=== PATIENT | male | born 1955 | race Caucasian/White ===

== ENCOUNTER 2017-09-05 14:12 | Emergency (ER) | payer MEDICAID ==
[2017-09-05] MEDS ORDERED: Sodium Chloride 0.9% 1,000 ML IV SCH (14:30)
--- NOTE | 2017-09-05 14:50 | CT ---
Head wo Cont HISTORY: Stroke code COMPARISON: None TECHNIQUE: Noncontrast enhanced axial cuts were obtained of the brain. FINDINGS:There is no cerebral or subdural hemorrhage. There is no mass effect or edema. The ventricle s and CSF spaces are appropriate for age. There is fusiform aneurysmal dilatation of the basilar williams ry. The aneurysm measures 2.6 cm in length and 1.5 cm diameter. IMPRESSION: 1. Fusiform aneurysm of the basilar artery. 2. No acute intracranial changes. MRI is a more sensitive evaluation for early ischemic change. ER physician notified of findings.
--- NOTE | 2017-09-05 15:04 | EDM.PDOC ---
ED HPI GENERAL MEDICAL PROBLEM - General Chief Complaint: Neuro Symptoms/Deficits Stated Complaint: MEDICAL VIA [facility]TH Time Seen by Provider: 09/05/17 14:57 Source of Information: Reports: Patient, Family History Limitations: Reports: No Limitations - History of Present Illness INITIAL COMMENTS - FREE TEXT/NARRATIVE: pt arrived with facial deviation. He has slurred speech but he is able to say what he wishes. He has bilateral leg weakness. He has normal strength in his arms. Onset: Today, Other ( 1 hr prior to arrival. ) Duration: Hour(s): Location: Reports: Head Associated Symptoms: Reports: No Other Symptoms - Related Data Allergies Allergy/AdvReac Type Severity Reaction Status Date / Time bee pollen Allergy Anxiety Verified 09/05/17 14:26 codeine Allergy Chest Pain Verified 09/05/17 14:26 Penicillins Allergy Hives Verified 09/05/17 14:26 Home Meds: Home Meds Hydrocodone/Acetaminophen [Hydrocodon-Acetaminophen 5-325] 1 each PO Q6H PRN [History] Aspirin 81 mg PO DAILY 07/26/16 [History] Clopidogrel [Plavix] 75 mg PO DAILY 07/26/16 [History] Levothyroxine 125 mcg PO DAILY 07/26/16 [History] Lisinopril [Prinivil] 10 mg PO DAILY 07/26/16 [History] Metoprolol Tartrate [Lopressor] 25 mg PO BID 07/26/16 [History] Morphine [MS Contin] 15 mg PO Q12H 07/26/16 [History] atorvaSTATin [Lipitor] 40 mg PO BEDTIME 07/26/16 [History] Bumetanide [Bumetanide] 1 tab PO DAILY 09/05/17 [History] Elbasvir/Grazoprevir [Zepatier 50-100 mg Tablet] 1 tab PO DAILY 09/05/17 [ History] Nicotine [Nicotine Patch] 1 patch TD DAILY 09/05/17 [History] Past Medical History HEENT History: Reports: Impaired Vision, Otitis Media Other HEENT History: ruptureds eardrum Cardiovascular History: Reports: Bypass, CAD, High Cholesterol, Hypertension, [place] , SOB on Exertion Respiratory History: Reports: Other (See Below) Other Respiratory History: ruptured left lung Gastrointestinal History: Reports: Hepatitis Musculoskeletal History: Reports: Back Pain, Chronic, Fracture Other Musculoskeletal History: fingers and rib Neurological History: Reports: Concussion, Head Trauma Psychiatric History: Reports: PTSD Endocrine/Metabolic History: Reports: Hypothyroidism, Obesity/BMI 30+ Hematologic History: Reports: Anticoagulation Therapy Dermatologic History: Reports: None - Infectious Disease History Infectious Disease History: Reports: Chicken Pox, Hepatitis B, Measles, Mononucleosis, Mumps, Scarlet Fever, Other (See Below) - Past Surgical History HEENT Surgical History: Reports: Oral Surgery Cardiovascular Surgical History: Reports: Coronary Artery Bypass GI Surgical History: Reports: Colonoscopy Musculoskeletal Surgical History: Reports: Arthroscopic Procedure, Shoulder Surgery Social & Family History - Family History Family Medical History: Noncontributory - Tobacco Use Smoking Status *Q: Heavy Tobacco Smoker Years of Tobacco use: 20 Packs/Tins Daily: 1 Used Tobacco, but Quit: No Second Hand Smoke Exposure: Yes - Caffeine Use Caffeine Use: Reports: Coffee, Soda - Recreational Drug Use Recreational Drug Use: No ED ROS GENERAL - Review of Systems Review Of Systems: See Below Constitutional: Reports: No Symptoms HEENT: Reports: Other ( facial deviation) Respiratory: Reports: No Symptoms Cardiovascular: Reports: No Symptoms Endocrine: Reports: No Symptoms GI/Abdominal: Reports: No Symptoms : Reports: No Symptoms Musculoskeletal: Reports: No Symptoms Skin: Reports: No Symptoms ED EXAM, NEURO - Physical Exam Exam: See Below Text/Narrative:: pt arrived with facial deviation and slurred speech. Exam Limited By: No Limitations General Appearance: Alert, Other (pupils equal and reactive. ) Ears: Normal TMs Nose: Normal Inspection Throat/Mouth: Normal Inspection Head Exam: Atraumatic Neck: Normal Inspection Respiratory/Chest: No Respiratory Distress Cardiovascular: Regular Rate, Rhythm GI/Abdominal: Soft, Non-Tender (Male) Exam: Deferred Rectal (Males) Exam: Deferred Neurological: Alert, Other ( facial deviation and slurred speech. ) Back Exam: Normal Inspection Extremities: Normal Inspection Psychiatric: Normal Affect Course - Vital Signs Last Recorded V/S: Last Vital Signs Temp 36.3 C 09/05/17 15:59 Pulse 61 09/05/17 15:59 Resp 16 09/05/17 15:59 BP 145/73 H 09/05/17 15:59 Pulse Ox 95 09/05/17 15:59 - Orders/Labs/Meds Labs: Laboratory Tests 09/05/17 09/05/17 09/05/17 Range/Units 14:32 14:32 14:32 WBC 11.1 H (4.5-11.0) K/uL RBC 5.36 (4.30-5.90) M/uL Hgb 15.8 H (12.0-15.0) g/dL Hct 46.1 (40.0-54.0) % MCV 86 (80-98) fL MCH 30 (27-31) pg MCHC 34 (32-36) % Plt Count 244 (150-400) K/uL Neut % (Auto) 79 H (36-66) % Lymph % (Auto) 13 L (24-44) % Nolan % (Auto) 7 H (2-6) % Eos % (Auto) 1 L (2-4) % Baso % (Auto) 0 (0-1) % APTT 27.3 (27.0-36.0) sec Sodium 139 L (140-148) mmol/L Potassium 4.0 (3.6-5.2) mmol/L Chloride 103 (100-108) mmol/L Carbon Dioxide 27 (21-32) mmol/L Anion Gap 13.0 (5.0-14.0) mmol/L BUN 20 H (7-18) mg/dL Creatinine 1.1 (0.8-1.3) mg/dL Est Cr Clr Drug Dosing 73.21 mL/min Estimated GFR (MDRD) > 60 (>60) Glucose 138 H (74-106) mg/dL Calcium 8.7 (8.5-10.1) mg/dL Total Bilirubin 0.3 (0.2-1.0) mg/dL AST 17 (15-37) U/L ALT 17 (12-78) U/L Alkaline Phosphatase 87 (46-116) U/L Total Protein 6.7 (6.4-8.2) g/dL Albumin 3.8 (3.4-5.0) g/dL Globulin 2.9 (2.3-3.5) g/dL Albumin/Globulin Ratio 1.3 (1.2-2.2) TSH, Ultra Sensitive (0.358-3.740) uIU/mL 09/05/17 Range/Units 14:32 WBC (4.5-11.0) K/uL RBC (4.30-5.90) M/uL Hgb (12.0-15.0) g/dL Hct (40.0-54.0) % MCV (80-98) fL MCH (27-31) pg MCHC (32-36) % Plt Count (150-400) K/uL Neut % (Auto) (36-66) % Lymph % (Auto) (24-44) % Nolan % (Auto) (2-6) % Eos % (Auto) (2-4) % Baso % (Auto) (0-1) % APTT (27.0-36.0) sec Sodium (140-148) mmol/L Potassium (3.6-5.2) mmol/L Chloride (100-108) mmol/L Carbon Dioxide (21-32) mmol/L Anion Gap (5.0-14.0) mmol/L BUN (7-18) mg/dL Creatinine (0.8-1.3) mg/dL Est Cr Clr Drug Dosing mL/min Estimated GFR (MDRD) (>60) Glucose (74-106) mg/dL Calcium (8.5-10.1) mg/dL Total Bilirubin (0.2-1.0) mg/dL AST (15-37) U/L ALT (12-78) U/L Alkaline Phosphatase (46-116) U/L Total Protein (6.4-8.2) g/dL Albumin (3.4-5.0) g/dL Globulin (2.3-3.5) g/dL Albumin/Globulin Ratio (1.2-2.2) TSH, Ultra Sensitive 3.786 H (0.358-3.740) uIU/mL Meds: Medications Discontinued Medications Generic Name Dose Route Start Last Admin Trade Name Freq PRN Reason Stop Dose Admin Gadoteridol 20 ml 09/05/17 15:16 09/05/17 15:48 Prohance IV 09/06/17 15:17 20 ml . DIRECTED PRN Administration RADIOLOGY EXAM Sodium Chloride 1,000 mls @ 125 mls/hr 09/05/17 14:30 09/05/17 14:33 Normal Saline IV 125 mls/hr ASDIRECTED SARAH Administration Morphine Sulfate 2 mg 09/05/17 15:51 09/05/17 15:54 Morphine IVPUSH 09/05/17 15:52 2 mg ONETIME ONE Administration Morphine Sulfate Confirm 02/20/18 15:52 Morphine Administered 09/05/17 15:53 Dose 2 mg .ROUTE .STK-MED ONE - Re-Assessments/Exams Free Text/Narrative Re-Assessment/Exam: 09/05/17 15:25 cat scan showed a large basilar artery aneuyism. There is no hemmorage. Departure - Departure Time of Disposition: 14:57 Disposition: DC/Tfer to Acute Hospital 02 Condition: Fair Clinical Impression: Stroke due to embolism - Discharge Information Referrals: Renan Oseguera MD [Primary Care Provider] - Forms: ED Department Discharge Care Plan Goals: to [facility] Critical Care Note - Critical Care Note Total Time (mins): 30 Comments: PT ARRIVED WITH FACIAL DEVIATION AND SLURRED SPEECH. hE HAD AN IMMEDIATE CAT SCAN WHICH SHOWED A LARGE BASILAR ARTERY ANEUYISM. nEUROSURGERY WAS CALLED AND THEY WANTED AN MRI AND A MRA OF THE BRAIN ND A MRA OF THE NECK. tHIS WAS OBTAINED. tHE PT DID REMAIN STABLE. hE WAS AIRLIFTED TO [facility]. tHRE WAS NO SIGN OF LEAKAGE FROM THE ANEUYISM BUT THERE WAS PRESSURE ON THE BUBBA PROBABLY CAUSING SOME OF THE SYMPTOMS
[2017-09-05] MEDS ORDERED: Gadoteridol 279.3 MG/ML 20 ML SDV IV PRN (15:16)
[2017-09-05] MEDS ORDERED: Morphine 2 MG/ML Syringe IVPUSH ONE (15:51)
[2017-09-05] MEDS ORDERED: Morphine 2 MG/ML Syringe ONE (15:52)
[2017-09-05 15:59] VITALS: BP 145/73
== END 2017-09-05 16:02 ==
LOC: JP.ED 14:12
DX: I63.12 Cerebral infarction due to embolism of basilar artery (principal); I10 Essential (primary) hypertension; E78.00 Pure hypercholesterolemia, unspecified; I25.10 Atherosclerotic heart disease of native coronary artery without angina pectoris; I25.2 Old myocardial infarction; E03.9 Hypothyroidism, unspecified; Z88.0 Allergy status to penicillin; Z88.5 Allergy status to narcotic agent; Z91.09 Other allergy status, other than to drugs and biological substances; Z79.82 Long term (current) use of aspirin; Z79.02 Long term (current) use of antithrombotics/antiplatelets; Z79.899 Other long term (current) drug therapy; Z72.0 Tobacco use; Z95.1 Presence of aortocoronary bypass graft
CPT/HCPCS: 36415; 70450; 70544; 70549; 70551; 80053; 84443; 85025; 85730; 93005; 99285; A9576; J2270; J7040

== ENCOUNTER 2017-09-24 15:42 | Emergency (ER) | payer MEDICAID ==
[2017-09-24 15:59] VITALS: BP 147/77
[2017-09-24] MEDS ORDERED: Silver Nitrate Applicator Each ONE (16:28)
--- NOTE | 2017-09-24 16:34 | EDM.PDOC ---
ED HPI GENERAL MEDICAL PROBLEM - General Chief Complaint: General Stated Complaint: LACERATION WON'T STOP BLEEDING Time Seen by Provider: 09/24/17 16:20 Source of Information: Reports: Patient, Old Records, RN History Limitations: Reports: No Limitations - History of Present Illness INITIAL COMMENTS - FREE TEXT/NARRATIVE: 61 yo male with a recent CVA is on warfarin. He is next due for an INR on Monday. Since sometime in the night last night he has had slow oozing of a tiny upper left sided lip wound. 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) chronic Pain Score (Numeric/FACES): 7 - Related Data Allergies Allergy/AdvReac Type Severity Reaction Status Date / Time bee pollen Allergy Anxiety Verified 09/24/17 16:01 codeine Allergy Chest Pain Verified 09/24/17 16:01 Penicillins Allergy Hives Verified 09/24/17 16:01 Home Meds: Home Meds Hydrocodone/Acetaminophen [Hydrocodon-Acetaminophen 5-325] 1 each PO QID [History] Aspirin 81 mg PO DAILY 07/26/16 [History] Clopidogrel [Plavix] 75 mg PO DAILY 07/26/16 [History] Levothyroxine 125 mcg PO DAILY 07/26/16 [History] Lisinopril [Prinivil] 10 mg PO DAILY 07/26/16 [History] Metoprolol Tartrate [Lopressor] 25 mg PO BID 07/26/16 [History] Morphine [MS Contin] 15 mg PO Q12H 07/26/16 [History] atorvaSTATin [Lipitor] 40 mg PO BEDTIME 07/26/16 [History] Bumetanide [Bumetanide] 1 tab PO DAILY 09/05/17 [History] Warfarin Sodium [Warfarin Sodium] 7.5 mg PO DAILY 09/24/17 [History] Past Medical History HEENT History: Reports: Impaired Vision, Otitis Media Other HEENT History: ruptureds eardrum Cardiovascular History: Reports: Bypass, CAD, High Cholesterol, Hypertension, [place] , SOB on Exertion Respiratory History: Reports: Other (See Below) Other Respiratory History: ruptured left lung Gastrointestinal History: Reports: Hepatitis Musculoskeletal History: Reports: Back Pain, Chronic, Fracture Other Musculoskeletal History: fingers and rib Neurological History: Reports: Concussion, CVA, Head Trauma Psychiatric History: Reports: Anxiety Endocrine/Metabolic History: Reports: Hypothyroidism, Obesity/BMI 30+ Hematologic History: Reports: Anticoagulation Therapy Dermatologic History: Reports: None - Infectious Disease History Infectious Disease History: Reports: Chicken Pox, Hepatitis B, Measles, Mononucleosis, Mumps, Scarlet Fever, Other (See Below) - Past Surgical History HEENT Surgical History: Reports: Oral Surgery Cardiovascular Surgical History: Reports: Coronary Artery Bypass GI Surgical History: Reports: Colonoscopy Musculoskeletal Surgical History: Reports: Arthroscopic Procedure, Shoulder Surgery Social & Family History - Family History Family Medical History: Noncontributory - Tobacco Use Smoking Status *Q: Current Some Day Smoker Years of Tobacco use: 46 Packs/Tins Daily: 0.3 Used Tobacco, but Quit: No Second Hand Smoke Exposure: Yes - Caffeine Use Caffeine Use: Reports: Coffee - Recreational Drug Use Recreational Drug Use: No ED ROS GENERAL - Review of Systems Review Of Systems: See Below Constitutional: Reports: No Symptoms HEENT: Reports: No Symptoms Respiratory: Reports: No Symptoms Cardiovascular: Reports: No Symptoms Skin: Reports: Wound (tiny oozing wound to the left lateral upper lip). Denies : Rash, Erythema Neurological: Reports: No Symptoms ED EXAM, GENERAL - Physical Exam Exam: See Below Exam Limited By: No Limitations General Appearance: Alert, WD/WN, No Apparent Distress Eye Exam: Bilateral Eye: Normal Inspection Ears: Normal External Exam, Normal Canal, Hearing Grossly Normal Ear Exam: Bilateral Ear: Auricle Normal, Canal Normal Nose: Normal Inspection, Normal Mucosa, No Blood Throat/Mouth: Normal Inspection, Normal Oropharynx, Normal Voice, No Airway Compromise, Other (upper left side of lip has very slow steady oozing.) Respiratory/Chest: No Respiratory Distress, Lungs Clear, Normal Breath Sounds Cardiovascular: Regular Rate, Rhythm, No Edema Skin Exam: Warm, Dry, Normal Color, No Rash, Wound/Incision (L side of upper lip , punctate size bleeding site. ) Course - Vital Signs Text/Narrative:: Cautery with silver nitrate. Last Recorded V/S: Last Vital Signs Temp 36.9 C 09/24/17 16:10 Pulse 79 09/24/17 16:10 Resp 16 09/24/17 16:10 BP 147/77 H 09/24/17 16:10 Pulse Ox 96 09/24/17 16:10 - Orders/Labs/Meds Labs: Laboratory Tests 09/24/17 Range/Units 16:33 PT 35.3 H (9.5-12.0) sec INR 3.15 H D (0.80-1.20) Meds: Medications Discontinued Medications Generic Name Dose Route Start Last Admin Trade Name Frekristi PRN Reason Stop Dose Admin Silver Nitrate Confirm 09/24/17 16:28 09/24/17 16:52 Silver Nitrate Administered 09/24/17 16:29 Not Given Dose 1 each .ROUTE .STK-MED ONE Silver Nitrate 1 each 09/24/17 16:53 09/24/17 16:57 Silver Nitrate TOP 09/24/17 16:54 1 each ONETIME ONE Administration Departure - Departure Time of Disposition: 17:06 Disposition: Home, Self-Care 01 Condition: Good Clinical Impression: Protime monitoring Open wound of lip Qualifiers: Encounter type: initial encounter Open wound type: puncture wound Foreign body presence: without foreign body Qualified Code(s): S01.531A - Puncture wound without foreign body of lip, initial encounter - Discharge Information Referrals: Renan Oseguera MD [Primary Care Provider] - Forms: ED Department Discharge
[2017-09-24] MEDS ORDERED: Silver Nitrate Applicator Each TOP ONE (16:53)
== END 2017-09-24 17:19 | disposition home or self-care (01) ==
LOC: JP.ED 15:42
DX: S01.531A Puncture wound without foreign body of lip, initial encounter (principal); I25.10 Atherosclerotic heart disease of native coronary artery without angina pectoris; E78.00 Pure hypercholesterolemia, unspecified; I10 Essential (primary) hypertension; I25.2 Old myocardial infarction; F17.210 Nicotine dependence, cigarettes, uncomplicated; Z86.73 Personal history of transient ischemic attack (TIA), and cerebral infarction without residual deficits; Z91.030 Bee allergy status; Z88.5 Allergy status to narcotic agent; Z88.0 Allergy status to penicillin; Z79.82 Long term (current) use of aspirin; Z79.01 Long term (current) use of anticoagulants; X58.XXXA Exposure to other specified factors, initial encounter
CPT/HCPCS: 12011; 36415; 85610; 99283-25

== ENCOUNTER 2018-03-07 10:05 | Emergency (ER) | payer MEDICAID ==
[2018-03-07] MEDS ORDERED: Meclizine 25 MG Tab PO ONE (10:18)
--- NOTE | 2018-03-07 10:30 | EDM.PDOC ---
ED HPI GENERAL MEDICAL PROBLEM - General Chief Complaint: General Stated Complaint: NOT SEEING CORRECTLY Time Seen by Provider: 03/07/18 10:15 Source of Information: Reports: Patient, EMS, Old Records, RN History Limitations: Reports: No Limitations - History of Present Illness INITIAL COMMENTS - FREE TEXT/NARRATIVE: 62 yo male awoke this morning and sat up to let the cat out and immediately developed vertigo. He managed to let the cat out and get back to bed, but when he tried to get up again he developed vertigo again associated with nausea/ vomiting. He had something like this many yrs ago. He has a hx of a cerebral aneurysm and this concerned him so he called 911 today. He denies a CASILLAS. He has no neck stiffness. EMS administered Zofran so his nausea is better and now lying still he has no vertigo. Onset: Today Onset Date: 03/07/18 Onset Time: 08:00 Duration: Minutes:, Waxing/Waning Location: Reports: Head Quality: Reports: Other (no pain) Severity: Severe (at its worst, not now) Improves with: Reports: Immobilization Worsens with: Reports: Movement Context: Reports: Other (PHx of vertigo and a cerebral aneurysm) Associated Symptoms: Reports: No Other Symptoms. 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) (Zofran per EMS) Back Pain Score (Numeric/FACES): 6 - Related Data Allergies Allergy/AdvReac Type Severity Reaction Status Date / Time bee pollen Allergy Anxiety Verified 09/24/17 16:01 codeine Allergy Chest Pain Verified 09/24/17 16:01 Penicillins Allergy Hives Verified 09/24/17 16:01 Home Meds: Home Meds Hydrocodone/Acetaminophen [Hydrocodon-Acetaminophen 5-325] 1 each PO QID [History] Aspirin 81 mg PO DAILY 07/26/16 [History] Clopidogrel [Plavix] 75 mg PO DAILY 07/26/16 [History] Levothyroxine 125 mcg PO DAILY 07/26/16 [History] Lisinopril [Prinivil] 10 mg PO DAILY 07/26/16 [History] Metoprolol Tartrate [Lopressor] 25 mg PO BID 07/26/16 [History] Morphine [MS Contin] 15 mg PO Q12H 07/26/16 [History] atorvaSTATin [Lipitor] 40 mg PO BEDTIME 07/26/16 [History] Bumetanide 1 tab PO DAILY 09/05/17 [History] Warfarin Sodium 7.5 mg PO DAILY 09/24/17 [History] Past Medical History HEENT History: Reports: Impaired Vision, Otitis Media Other HEENT History: ruptureds eardrum Cardiovascular History: Reports: Bypass, CAD, High Cholesterol, Hypertension, [place] , SOB on Exertion Respiratory History: Reports: Other (See Below) Other Respiratory History: ruptured left lung Gastrointestinal History: Reports: Hepatitis Musculoskeletal History: Reports: Back Pain, Chronic, Fracture Other Musculoskeletal History: fingers and rib Neurological History: Reports: Concussion, CVA, Head Trauma, Other (See Below) Other Neuro History: anurism Psychiatric History: Reports: Anxiety Endocrine/Metabolic History: Reports: Hypothyroidism, Obesity/BMI 30+ Hematologic History: Reports: Anticoagulation Therapy Dermatologic History: Reports: None - Infectious Disease History Infectious Disease History: Reports: Chicken Pox, Hepatitis B, Measles, Mononucleosis, Mumps, Scarlet Fever, Other (See Below) - Past Surgical History Head Surgeries/Procedures: Reports: None HEENT Surgical History: Reports: Oral Surgery Cardiovascular Surgical History: Reports: Coronary Artery Bypass GI Surgical History: Reports: Colonoscopy Musculoskeletal Surgical History: Reports: Arthroscopic Procedure, Shoulder Surgery Social & Family History - Family History Family Medical History: Noncontributory - Tobacco Use Smoking Status *Q: Heavy Tobacco Smoker Years of Tobacco use: 20 Packs/Tins Daily: 1 - Caffeine Use Caffeine Use: Reports: Coffee, Soda - Recreational Drug Use Recreational Drug Use: No ED ROS GENERAL - Review of Systems Review Of Systems: See Below Constitutional: Reports: No Symptoms HEENT: Reports: No Symptoms Respiratory: Reports: No Symptoms Cardiovascular: Reports: No Symptoms Endocrine: Reports: No Symptoms GI/Abdominal: Reports: Nausea, Vomiting (not currently). Denies: Abdominal Pain , Black Stool, Bloody Stool, Constipation, Diarrhea, Distension : Reports: No Symptoms Musculoskeletal: Reports: No Symptoms Skin: Reports: No Symptoms Neurological: Reports: Other (vertigo before arrival.) ED EXAM, GENERAL - Physical Exam Exam: See Below Exam Limited By: No Limitations General Appearance: Alert, WD/WN, No Apparent Distress Eye Exam: Bilateral Eye: Normal Inspection Ears: Normal External Exam, Normal Canal, Hearing Grossly Normal, Normal TMs Ear Exam: Bilateral Ear: Auricle Normal, Canal Normal, TM normal Nose: Normal Inspection, Normal Mucosa, No Blood Throat/Mouth: Normal Inspection, Normal Lips, Normal Oropharynx, Normal Voice, No Airway Compromise Head: Atraumatic, Normocephalic Neck: Normal Inspection Respiratory/Chest: No Respiratory Distress, Lungs Clear, Normal Breath Sounds, No Accessory Muscle Use Cardiovascular: Regular Rate, Rhythm, No Edema GI/Abdominal: Normal Bowel Sounds, Soft, Non-Tender, No Distention Extremities: Normal Inspection, Normal Range of Motion, Non-Tender, No Pedal Edema Neurological: Alert, Oriented, CN II-XII Intact, Normal Cognition, No Motor/ Sensory Deficits Psychiatric: Normal Affect, Normal Mood Skin Exam: Warm, Dry, Intact, Normal Color, No Rash Lymphatic: No Adenopathy Course - Vital Signs Text/Narrative:: Improved, not resolved after Meclizine. Last Recorded V/S: Last Vital Signs Temp 36.8 C 03/07/18 10:12 Pulse 61 03/07/18 10:12 Resp 18 03/07/18 10:12 BP 146/80 H 03/07/18 10:12 Pulse Ox 96 03/07/18 10:12 - Orders/Labs/Meds Meds: Medications Discontinued Medications Generic Name Dose Route Start Last Admin Trade Name Freq PRN Reason Stop Dose Admin Meclizine HCl 25 mg 03/07/18 10:18 03/07/18 10:30 Antivert PO 03/07/18 10:19 25 mg ONETIME ONE Administration Departure - Departure Time of Disposition: 11:33 Disposition: Home, Self-Care 01 Condition: Fair Clinical Impression: BPV (benign positional vertigo) Qualifiers: Laterality: unspecified laterality Qualified Code(s): H81.10 - Benign paroxysmal vertigo, unspecified ear - Discharge Information *PRESCRIPTION DRUG MONITORING PROGRAM REVIEWED*: Not Applicable *COPY OF PRESCRIPTION DRUG MONITORING REPORT IN PATIENT MARIZOL: Not Applicable Instructions: Vertigo, [id number] Referrals: PCP,None [Primary Care Provider] - Forms: ED Department Discharge Additional Instructions: Take meclizine as directed. Recheck if worse or not improving with Dr. Oseguera for referral possibly to PT.
[2018-03-07 10:36] VITALS: BP 146/80
== END 2018-03-07 11:49 | disposition home or self-care (01) ==
LOC: JP.ED 10:05
DX: H81.10 Benign paroxysmal vertigo, unspecified ear (principal); F17.210 Nicotine dependence, cigarettes, uncomplicated; E78.00 Pure hypercholesterolemia, unspecified; I10 Essential (primary) hypertension; I25.2 Old myocardial infarction; Z79.82 Long term (current) use of aspirin; Z88.5 Allergy status to narcotic agent; Z88.0 Allergy status to penicillin; Z79.01 Long term (current) use of anticoagulants
CPT/HCPCS: 99284; A9270

== ENCOUNTER 2018-03-08 00:57 | Emergency (ER) | payer MEDICAID ==
[2018-03-08] MEDS ORDERED: Ondansetron 4 MG/2 ML SDV IVPUSH ONE (01:41)
[2018-03-08] MEDS ORDERED: LORazepam 2 MG/ML SDV IVPUSH ONE (01:41)
--- NOTE | 2018-03-08 01:44 | EDM.PDOC ---
ED HPI GENERAL MEDICAL PROBLEM - General Chief Complaint: Gastrointestinal Problem Stated Complaint: ILLNESS Time Seen by Provider: 03/08/18 01:43 Source of Information: Reports: Patient, Family History Limitations: Reports: No Limitations - History of Present Illness INITIAL COMMENTS - FREE TEXT/NARRATIVE: pt was seen earlier today in the er and he was given something for dizziness. He has a history of a large brain aneuysm. Onset: Today Duration: Hour(s):, Getting Worse, Other (Pt is vomiting continuously. ) Location: Reports: Head Associated Symptoms: Reports: No Other Symptoms, Other (pt is not having severe headaches. ) - Related Data Allergies Allergy/AdvReac Type Severity Reaction Status Date / Time bee pollen Allergy Anxiety Verified 03/08/18 01:15 codeine Allergy Chest Pain Verified 03/08/18 01:15 Penicillins Allergy Hives Verified 03/08/18 01:15 Home Meds: Home Meds Hydrocodone/Acetaminophen [Hydrocodon-Acetaminophen 5-325] 1 each PO QID [History] Aspirin 81 mg PO DAILY 07/26/16 [History] Clopidogrel [Plavix] 75 mg PO DAILY 07/26/16 [History] Levothyroxine 125 mcg PO DAILY 07/26/16 [History] Lisinopril [Prinivil] 10 mg PO DAILY 07/26/16 [History] Metoprolol Tartrate [Lopressor] 25 mg PO BID 07/26/16 [History] Morphine [MS Contin] 15 mg PO Q12H 07/26/16 [History] atorvaSTATin [Lipitor] 40 mg PO BEDTIME 07/26/16 [History] Bumetanide 1 tab PO DAILY 09/05/17 [History] Warfarin Sodium 7.5 mg PO DAILY 09/24/17 [History] Meclizine [Antivert] 25 mg PO Q6H PRN #30 tab 03/07/18 [Rx] Past Medical History HEENT History: Reports: Impaired Vision, Otitis Media Other HEENT History: ruptureds eardrum Cardiovascular History: Reports: Bypass, CAD, High Cholesterol, Hypertension, [place] , SOB on Exertion Respiratory History: Reports: Other (See Below) Other Respiratory History: ruptured left lung Gastrointestinal History: Reports: Hepatitis Musculoskeletal History: Reports: Back Pain, Chronic, Fracture Other Musculoskeletal History: fingers and rib Neurological History: Reports: Concussion, CVA, Head Trauma, Other (See Below) Other Neuro History: aneurysm Psychiatric History: Reports: Anxiety Endocrine/Metabolic History: Reports: Hypothyroidism, Obesity/BMI 30+ Hematologic History: Reports: Anticoagulation Therapy Dermatologic History: Reports: None - Infectious Disease History Infectious Disease History: Reports: Chicken Pox, Hepatitis B, Measles, Mononucleosis, Mumps, Scarlet Fever, Other (See Below) - Past Surgical History Head Surgeries/Procedures: Reports: None HEENT Surgical History: Reports: Oral Surgery Cardiovascular Surgical History: Reports: Coronary Artery Bypass GI Surgical History: Reports: Colonoscopy Musculoskeletal Surgical History: Reports: Arthroscopic Procedure, Shoulder Surgery Social & Family History - Family History Family Medical History: Noncontributory - Tobacco Use Smoking Status *Q: Current Every Day Smoker Years of Tobacco use: 20 Packs/Tins Daily: 1 - Caffeine Use Caffeine Use: Reports: Coffee, Soda - Recreational Drug Use Recreational Drug Use: No ED ROS GENERAL - Review of Systems Review Of Systems: See Below Constitutional: Reports: No Symptoms Respiratory: Reports: No Symptoms Cardiovascular: Reports: No Symptoms Endocrine: Reports: No Symptoms GI/Abdominal: Reports: Nausea, Vomiting, Other ( intractable vomiting. ) : Reports: No Symptoms Musculoskeletal: Reports: No Symptoms Skin: Reports: No Symptoms ED EXAM, GI/ABD - Physical Exam Exam: See Below Text/Narrative:: pt is still spinning when he moves. He has been vopmiting profusely. He has not had chest pain or severe headaches. Exam Limited By: No Limitations General Appearance: Alert, Anxious, Moderate Distress, Other (pupils are equal and reactive.) Ears: Normal TMs Nose: Normal Inspection Throat/Mouth: Normal Inspection Head: Atraumatic Neck: Normal Inspection Respiratory/Chest: No Respiratory Distress Cardiovascular: Regular Rate, Rhythm GI/Abdominal Exam: Soft, Non-Tender (Male) Exam: Deferred Rectal (Males) Exam: Deferred Back Exam: Normal Inspection Extremities: Normal Inspection Neurological: Alert, Oriented, Normal Cognition Psychiatric: Normal Affect Course - Vital Signs Last Recorded V/S: Last Vital Signs Temp 36.9 C 03/08/18 01:08 Pulse 75 03/08/18 01:08 Resp 18 03/08/18 01:08 BP 176/99 H 03/08/18 01:08 Pulse Ox 97 03/08/18 01:08 - Orders/Labs/Meds Orders: Active Orders 24 hr Category Date Time Status Head wo Cont [CT] Stat Exams 03/08/18 01:42 Taken Sodium Chloride 0.9% [Normal Saline] 1,000 ml Med 03/08/18 01:45 Active IV ASDIRECTED Sodium Chloride 0.9% [Normal Saline] 1,000 ml Med 03/08/18 02:30 Active IV ASDIRECTED Medication Orders Sodium Chloride (Normal Saline) 1,000 mls @ 999 mls/hr IV ASDIRECTED SARAH Last Admin: 03/08/18 02:35 Dose: 999 mls/hr Sodium Chloride (Normal Saline) 1,000 mls @ 999 mls/hr IV ASDIRECTED SARAH Last Admin: 03/08/18 03:30 Dose: 999 mls/hr Labs: Laboratory Tests 03/08/18 03/08/18 03/08/18 Range/Units 01:42 01:42 01:56 WBC 10.2 (4.5-11.0) K/uL RBC 5.46 (4.30-5.90) M/uL Hgb 15.9 H (12.0-15.0) g/dL Hct 45.6 (40.0-54.0) % MCV 84 (80-98) fL MCH 29 (27-31) pg MCHC 35 (32-36) % Plt Count 290 (150-400) K/uL Neut % (Auto) 78 H (36-66) % Lymph % (Auto) 14 L (24-44) % Duchesne % (Auto) 8 H (2-6) % Eos % (Auto) 0 L (2-4) % Baso % (Auto) 0 (0-1) % PT 21.2 H (9.5-12.0) sec INR 2.00 H D (0.80-1.20) Sodium 138 L (140-148) mmol/L Potassium 4.4 (3.6-5.2) mmol/L Chloride 100 (100-108) mmol/L Carbon Dioxide 28 (21-32) mmol/L Anion Gap 14.4 H (5.0-14.0) mmol/L BUN 17 (7-18) mg/dL Creatinine 1.0 (0.8-1.3) mg/dL Est Cr Clr Drug Dosing 81.91 mL/min Estimated GFR (MDRD) > 60 (>60) Glucose 120 H (74-106) mg/dL Calcium 9.0 (8.5-10.1) mg/dL Total Bilirubin 0.8 D (0.2-1.0) mg/dL AST 15 (15-37) U/L ALT 14 (12-78) U/L Alkaline Phosphatase 119 H (46-116) U/L Total Protein 7.1 (6.4-8.2) g/dL Albumin 3.7 (3.4-5.0) g/dL Globulin 3.4 (2.3-3.5) g/dL Albumin/Globulin Ratio 1.1 L (1.2-2.2) Meds: Medications Generic Name Dose Route Start Last Admin Trade Name Freq PRN Reason Stop Dose Admin Sodium Chloride 1,000 mls @ 999 mls/hr 03/08/18 01:45 03/08/18 02:35 Normal Saline IV 999 mls/hr ASDIRECTED SARAH Administration Sodium Chloride 1,000 mls @ 999 mls/hr 03/08/18 02:30 03/08/18 03:30 Normal Saline IV 999 mls/hr ASDIRECTED SARAH Administration Discontinued Medications Generic Name Dose Route Start Last Admin Trade Name Freq PRN Reason Stop Dose Admin Lorazepam 0.5 mg 03/08/18 01:41 03/08/18 02:38 Ativan IVPUSH 03/08/18 01:42 0.5 mg ONETIME ONE Administration Meclizine HCl 25 mg 03/08/18 03:09 Antivert PO 03/08/18 03:10 ONETIME ONE Ondansetron HCl 4 mg 03/08/18 01:41 03/08/18 02:36 Zofran IVPUSH 03/08/18 01:42 4 mg ONETIME ONE Administration Oxycodone/Acetaminophen 1 tab 03/08/18 02:46 03/08/18 02:52 Percocet 325-5 Mg PO 03/08/18 02:47 1 tab ONETIME ONE Administration - Re-Assessments/Exams Free Text/Narrative Re-Assessment/Exam: 03/08/18 04:40 after the zoforan and ativan his nausea is better. He is still having vertigo. Departure - Departure Time of Disposition: 04:40 Disposition: Home, Self-Care 01 Condition: Fair Clinical Impression: Vertigo - Discharge Information Referrals: Renan Oseguera MD [Primary Care Provider] - Forms: ED Department Discharge Care Plan Goals: low activity, cont antivert for dizziness, zoforan 4mg q6h as needed for nausea. - My Orders Last 24 Hours: My Active Orders 03/08/18 01:42 Head wo Cont [CT] Stat 03/08/18 01:45 Sodium Chloride 0.9% [Normal Saline] 1,000 ml IV ASDIRECTED 03/08/18 02:30 Sodium Chloride 0.9% [Normal Saline] 1,000 ml IV ASDIRECTED - Assessment/Plan Last 24 Hours: My Active Orders 03/08/18 01:42 Head wo Cont [CT] Stat 03/08/18 01:45 Sodium Chloride 0.9% [Normal Saline] 1,000 ml IV ASDIRECTED 03/08/18 02:30 Sodium Chloride 0.9% [Normal Saline] 1,000 ml IV ASDIRECTED
[2018-03-08] MEDS ORDERED: Sodium Chloride 0.9% 1,000 ML IV SCH ×2 (01:45→02:30)
[2018-03-08] MEDS ORDERED: Acetaminophen/oxyCODONE 325-5 MG Tab PO ONE (02:46)
[2018-03-08] MEDS ORDERED: Meclizine 25 MG Tab PO ONE (03:09)
[2018-03-08 04:41] VITALS: BP 144/89
== END 2018-03-08 04:52 | disposition home or self-care (01) ==
LOC: JP.ED 00:57
DX: R42 Dizziness and giddiness (principal); I10 Essential (primary) hypertension; E66.9 Obesity, unspecified; E03.9 Hypothyroidism, unspecified; F17.210 Nicotine dependence, cigarettes, uncomplicated; Z79.899 Other long term (current) drug therapy; Z79.01 Long term (current) use of anticoagulants; Z79.82 Long term (current) use of aspirin; Z88.0 Allergy status to penicillin; Z88.5 Allergy status to narcotic agent; Z91.030 Bee allergy status
CPT/HCPCS: 36415; 70450; 80053; 85025; 85610; 96361; 96374; 96375; 99284; A9270; J2060; J2405; J7030